=== PATIENT | male | born 1990 | race Two or more races ===

== ENCOUNTER 2017-02-08 21:59 | Emergency (ER) | payer OTHER ==
[~2017-02-08] VITALS: Ht 180.3 cm; Wt 78.5 kg
[2017-02-08 22:10] VITALS: BP 146/90
[2017-02-09 00:34] LABS: Hepatitis B Surface Antibody Positive
== END 2017-02-09 02:30 | disposition home or self-care (01) ==
LOC: ER 22:07
DX: Z77.29 Contact with and (suspected) exposure to other hazardous substances (principal)
CPT/HCPCS: 36415; 86703; 86706; 86803; 87340